=== PATIENT | female | born 1975 | race Two or more races ===

== ENCOUNTER 2017-09-18 22:24 | Observation (INO) | payer OTHER ==
[~2017-09-18] VITALS: Ht 175.3 cm; Wt 110.0 kg
[~2017-09-18 22:24] MED LIST: ALPRAZOLAM ER0.5 MG PO; ASPIRIN325 MG PO; ASPIRIN81 M1 PO; ASPIRIN81 M2 PO; B COMPLETE1 EACH PO; BENICAR HCT 201 EACH PO; DILAUDID2 MG PO; Flexeril PO; HYDROCHLOROTHIA25 MG PO; INDERAL LA80 MG PO; ISMO20 MG PO; LEVOTHYROXINE175 MCG PO; LOSARTAN-HCTZ1 EAC2 PO; MEDROL32 MG PO; Maalox, Mylanta PO; NIFEDIPINE10 MG PO; NORCO 5/3251 TABLET; NORCO 5/3251 TABLET PO; PANTOPRAZOLE SO40 MG PO; PRENATAL1 EACH PO; PRILOSEC OTC20 MG PO; SYNTHROID125 MCG PO; Senokot,Sennagen PO; TRAMADOL HCL50 MG PO; TYLENOL WITH C1 EACH PO; ZYRTEC10 M2 PO
[2017-09-18 22:50] LABS: HEMATOCRIT 37.6 % (36.0-46.0); MCH 29.6 PG (29.0-34.0); MCHC 32.7 G/DL (30.0-36.0); MCV 90.4 FL (83-99); MEAN PLAT.VOLUME 9.3 uM^3 (9.5-12.4); PLATELET COUNT 274 K/uL (156-360); RBC DIS.WIDTH-CV 13.2 % (11.8-14.6); RBC DIS.WIDTH-SD 43.8 % (39-53); RED BLOOD COUNT 4.16 M/uL (3.80-5.20); WHITE BLOOD COUNT 8.4 K/uL (4.1-10.2)
[2017-09-18 23:02] LABS: CHLORIDE 105 mEq/L (99-109); POTASSIUM 3.4 mEq/L (3.7-5.4); SODIUM 140 mEq/L (136-147)
[2017-09-18 23:04] LABS: GLUCOSE 98 mg/dL (70-99)
[2017-09-18 23:05] LABS: ANION GAP 9 MEQ/L (2-14)
[2017-09-18 23:07] LABS: GFR ESTIMATE (CALCULATED) > 59 mL/min/
[2017-09-18 23:08] LABS: UREA NITROGEN (BUN) 21 mg/dL (9-23)
[2017-09-18 23:11] LABS: TROP-I INTERPRETATION NEGATIVE; TROPONIN-I < 0.01 ng/mL (0.0-0.30)
[2017-09-19 00:16] LABS: QUANTITATIVE HCG < 4.0 MIU/ML
[2017-09-19 01:54] LABS: TROP-I INTERPRETATION NEGATIVE; TROPONIN-I < 0.01 ng/mL (0.0-0.30)
[2017-09-19 04:57] VITALS: BP 123/74
[2017-09-19 07:34] LABS: METH RESISTANT S AUREUS PCR ND (NEGATIVE)
[2017-09-19 08:00] VITALS: BP 122/70
[2017-09-19 08:46] LABS: TROP-I INTERPRETATION NEGATIVE; TROPONIN-I < 0.01 ng/mL (0.0-0.30)
[2017-09-19] MEDS ORDERED: PROVENTIL HFA6.7 GM IH (09:52)
[2017-09-19 11:43] VITALS: BP 130/78
[2017-09-19] MEDS ORDERED: SYNTHROID200 MCG PO (11:49)
[2017-09-19] MEDS ORDERED: TRANEXAMIC ACI650 MG PO (11:49)
[2017-09-19] MEDS ORDERED: HYDROCODON-ACE1 EA11 PO (11:50)
[2017-09-19] MEDS ORDERED: FIORICET 50-301 EAC1 PO (11:52)
[2017-09-19] MEDS ORDERED: MULTIVITAMIN1 EAC2 PO (11:52)
[2017-09-19] MEDS ORDERED: VITAMIN D400 UNIT PO (11:53)
[2017-09-19] MEDS ORDERED: AUGMENTIN875 MG PO (14:15)
== END 2017-09-19 15:32 | disposition home or self-care (01) ==
LOC: EME 22:24 → EDOF 09-19 03:51 → ENRESERV 09-19 03:53 → 5WEST 09-19 04:42
PROVIDERS: Emergency Medicine; Hospitalist
DX: R07.9 Chest pain, unspecified (principal); R06.09 Other forms of dyspnea; I10 Essential (primary) hypertension; E03.9 Hypothyroidism, unspecified; J45.909 Unspecified asthma, uncomplicated; J32.9 Chronic sinusitis, unspecified; E87.6 Hypokalemia; K21.9 Gastro-esophageal reflux disease without esophagitis; N92.0 Excessive and frequent menstruation with regular cycle; Z90.49 Acquired absence of other specified parts of digestive tract; Z88.2 Allergy status to sulfonamides; Z88.5 Allergy status to narcotic agent; Z88.1 Allergy status to other antibiotic agents; Z88.8 Allergy status to other drugs, medicaments and biological substances; Z79.82 Long term (current) use of aspirin
CPT/HCPCS: 71020; 71275; 80048; 83880; 84439; 84443; 84484; 84702; 85027; 85379; 87641; 93005; 93306; 93970; 94640; 99281; 99285; G0378; J1650

== ENCOUNTER → 2017-10-31 | Outpatient (CLI) | payer OTHER ==
[~2017-10-31] MED LIST changes: +AUGMENTIN875 MG PO; +FIORICET 50-301 EAC1 PO; +HYDROCODON-ACE1 EA11 PO; +MULTIVITAMIN1 EAC2 PO; +PROVENTIL HFA6.7 GM IH; +SYNTHROID200 MCG PO; +TRANEXAMIC ACI650 MG PO; +VITAMIN D400 UNIT PO
== END | disposition home or self-care (01) ==
LOC: NUC 07:00
DX: R13.10 Dysphagia, unspecified (principal); K21.9 Gastro-esophageal reflux disease without esophagitis; R14.0 Abdominal distension (gaseous); Z86.010 Personal history of colon polyps
CPT/HCPCS: 78264; A9541

== ENCOUNTER 2018-03-14 05:04 | Emergency (ER) | payer OTHER ==
[~2018-03-14] VITALS: Ht 175.3 cm; Wt 112.1 kg
[2018-03-14 06:02] VITALS: BP 125/77
== END 2018-03-14 06:05 | disposition home or self-care (01) ==
LOC: EME 05:04
DX: S20.212A Contusion of left front wall of thorax, initial encounter (principal); V49.40XA Driver injured in collision with unspecified motor vehicles in traffic accident, initial encounter; Y92.410 Unspecified street and highway as the place of occurrence of the external cause; I10 Essential (primary) hypertension; E03.9 Hypothyroidism, unspecified; Z90.49 Acquired absence of other specified parts of digestive tract
CPT/HCPCS: 71046; 93005; 99281; 99283

== ENCOUNTER 2018-06-28 05:45 | Day surgery (SDC) | payer OTHER ==
[~2018-06-28] VITALS: Ht 174.6 cm; Wt 107.5 kg
[~2018-06-28 05:45] MED LIST changes: +CELEXA20 MG PO; +FLONASE ALLERG9.9 ML BOTH NARES; +LYSTEDA650 MG PO; +SYNTHROID100 MCG PO; +SYNTHROID112 MCG PO; +VITAMIN D31000 UNIT PO; -VITAMIN D400 UNIT PO
[2018-06-28 06:45] VITALS: BP 128/95
[2018-06-28 11:30] VITALS: BP 136/81
[2018-06-28 12:30] VITALS: BP 138/86
== END 2018-06-28 12:51 | disposition home or self-care (01) ==
LOC: SDC
DX: N92.0 Excessive and frequent menstruation with regular cycle (principal); D25.1 Intramural leiomyoma of uterus; N80.0 Endometriosis of uterus; N94.6 Dysmenorrhea, unspecified; E03.9 Hypothyroidism, unspecified; I10 Essential (primary) hypertension; Z80.41 Family history of malignant neoplasm of ovary; Z80.49 Family history of malignant neoplasm of other genital organs; Z82.49 Family history of ischemic heart disease and other diseases of the circulatory system; Z88.2 Allergy status to sulfonamides; Z88.5 Allergy status to narcotic agent; Z88.8 Allergy status to other drugs, medicaments and biological substances
CPT/HCPCS: 87641; 88307; J0131; J0330; J0690; J1170; J1885; J2250; J2710; J2765; J3010; J7643; Q0175